=== PATIENT | male | born 1955 | race Caucasian/White ===

== ENCOUNTER → 2016-07-29 | Outpatient (CLI) | payer BC ==
[2016-07-29 09:11] LABS: BASOPHILS % 0.8 % (0.0-2.0); EOSINOPHILS % 2.5 % (0.0-5.0); HEMATOCRIT. 48.5 % (42.0-52.0); HEMOGLOBIN. 16.4 g/dL (14.0-18.0); LYMPHOCYTES % 25.5 % (20.0-50.0); MEAN CORPUSCULAR HEMOGLOBIN 30.2 pg (28.0-32.0); MEAN CORPUSCULAR HGB CONC 33.9 g/dL (31.0-37.0); MEAN CORPUSCULAR VOLUME 89.3 fL (80.0-94.0); MEAN PLATELET VOLUME 8.3 fl (7.4-10.4); MONOCYTES % 6.7 % (2.0-8.0); NEUTROPHILS % 64.5 % (40.0-76.0); PLATELET 168 x1000/uL (130-400); RED BLOOD CELL COUNT 5.43 mill/uL (4.7-6.1); RED CELL DISTRIBUTION WIDTH 12.7 % (11.6-14.6); WHITE BLOOD COUNT 6.4 x1000/uL (4.5-11.0)
[2016-07-29 09:30] LABS: ALANINE AMINOTRANSFERASE 65 IU/L (13-61); ALBUMIN 4.5 g/dL (3.4-5.0); ANION GAP 11; CALCIUM 9.3 mg/dL (8.5-10.1); CARBON DIOXIDE 28 mEq/L (21-32); CHLORIDE 103 mEq/L (98-107); HDL CHOLESTEROL 62 mg/dL (40-59); INDEX HEMOLYSI 1 (1-3); INDEX ICTERIC 1 (1-4); INDEX LIPEMIC 1 (1-3); LDL CHOLESTEROL 115 mg/dL (5-100); T4 FREE 0.96 ng/dL (0.76-1.46); TRIGLYCERIDE 177 mg/dL (0-150); UREA NITROGEN BLOOD 14 mg/dL (7-21); eGFR > 60 mL/min (>60)
[2016-07-30 09:06] LABS: FOLICLE STIMULATING HORMONE 4.3 mIU/mL (1.5-12.4); LUTEINIZING HORMONE 6.6 mIU/mL (1.7-8.6)
[2016-07-31 17:06] LABS: TESTOSTERONE FREE 9.6 pg/mL (7.2-24.0)
[2016-08-03 14:19] LABS: ALDOSTERONE 4.2 ng/dL (0.0-30.0)
[2016-08-05 15:08] LABS: RENIN ACTIVITY PLASMA 1.109 ng/mL/hr (0.167-5.380)
== END | disposition home or self-care (01) ==
LOC: LAB 08:32
PROVIDERS: ATTEND Internal Medicine Endocrinology, Diabetes & Metabolism
DX: E78.00 Pure hypercholesterolemia, unspecified (principal); E23.0 Hypopituitarism; E87.6 Hypokalemia
CPT/HCPCS: 36415; 80053; 80061; 82024; 82088; 82533; 83001; 83002; 83036; 84244; 84402; 84403; 84439; 84443; 85025

== ENCOUNTER → 2016-08-08 | Outpatient (CLI) | payer BC ==
[~2016-08-08] MED LIST: GADOBENATE DIMEGLUMINE 529 MG/ML 10ML IV ONE
== END | disposition home or self-care (01) ==
LOC: MRI 07:56
PROVIDERS: ATTEND Internal Medicine Endocrinology, Diabetes & Metabolism
DX: E23.0 Hypopituitarism (principal)
CPT/HCPCS: 70553; A9577

== ENCOUNTER → 2016-09-12 | Outpatient (CLI) | payer BC ==
[2016-09-12 08:37] LABS: BASOPHILS % 0.9 % (0.0-2.0); EOSINOPHILS % 3.1 % (0.0-5.0); HEMATOCRIT. 45.8 % (42.0-52.0); HEMOGLOBIN. 15.7 g/dL (14.0-18.0); LYMPHOCYTES % 22.5 % (20.0-50.0); MEAN CORPUSCULAR HEMOGLOBIN 30.6 pg (28.0-32.0); MEAN CORPUSCULAR VOLUME 89.1 fL (80.0-94.0); MEAN PLATELET VOLUME 7.9 fl (7.4-10.4); MONOCYTES % 6.4 % (2.0-8.0); NEUTROPHILS % 67.1 % (40.0-76.0); PLATELET 185 x1000/uL (130-400); RED BLOOD CELL COUNT 5.14 mill/uL (4.7-6.1); RED CELL DISTRIBUTION WIDTH 13.1 % (11.6-14.6)
[2016-09-12 09:02] LABS: CARBON DIOXIDE 28 mEq/L (21-32); CHLORIDE 104 mEq/L (98-107); HDL CHOLESTEROL 76 mg/dL (40-59); LDL CHOLESTEROL 95 mg/dL (5-100); T4 FREE 0.93 ng/dL (0.76-1.46)
== END | disposition home or self-care (01) ==
LOC: LAB 08:12
PROVIDERS: ATTEND Internal Medicine Endocrinology, Diabetes & Metabolism
DX: D35.2 Benign neoplasm of pituitary gland (principal); I10 Essential (primary) hypertension; R73.9 Hyperglycemia, unspecified; E55.9 Vitamin D deficiency, unspecified
CPT/HCPCS: 36415; 80053; 80061; 82306; 82533; 83036; 84439; 84443; 85025

== ENCOUNTER → 2016-11-11 | Outpatient (CLI) | payer BC ==
[2016-11-11 08:16] LABS: BASOPHILS % 1.3 % (0.0-2.0); EOSINOPHILS % 5.2 % (0.0-5.0); HEMATOCRIT. 42.5 % (42.0-52.0); HEMOGLOBIN. 14.5 g/dL (14.0-18.0); MEAN CORPUSCULAR HEMOGLOBIN 30.4 pg (28.0-32.0); MEAN PLATELET VOLUME 8.1 fl (7.4-10.4); MONOCYTES % 6.9 % (2.0-8.0); NEUTROPHILS % 56.6 % (40.0-76.0); PLATELET 183 x1000/uL (130-400); RED BLOOD CELL COUNT 4.78 mill/uL (4.7-6.1); RED CELL DISTRIBUTION WIDTH 13.1 % (11.6-14.6)
[2016-11-11 08:53] LABS: CARBON DIOXIDE 26 mEq/L (21-32); CHLORIDE 104 mEq/L (98-107); HDL CHOLESTEROL 58 mg/dL (40-59); LDL CHOLESTEROL 98 mg/dL (5-100)
== END | disposition home or self-care (01) ==
LOC: LAB 07:41
PROVIDERS: ATTEND Internal Medicine Endocrinology, Diabetes & Metabolism
DX: I10 Essential (primary) hypertension (principal); E78.5 Hyperlipidemia, unspecified; E55.9 Vitamin D deficiency, unspecified; R73.9 Hyperglycemia, unspecified
CPT/HCPCS: 36415; 80053; 80061; 82306; 83835; 84439; 84443; 85025

== ENCOUNTER → 2017-02-14 | Outpatient (CLI) | payer BC ==
[2017-02-14 07:54] LABS: BASOPHILS % 1.2 % (0.0-2.0); EOSINOPHILS % 3.7 % (0.0-5.0); HEMATOCRIT. 42.7 % (42.0-52.0); HEMOGLOBIN. 14.7 g/dL (14.0-18.0); LYMPHOCYTES % 22.7 % (20.0-50.0); MEAN CORPUSCULAR HEMOGLOBIN 30.4 pg (28.0-32.0); MEAN CORPUSCULAR VOLUME 88.5 fL (80.0-94.0); MEAN PLATELET VOLUME 8.2 fl (7.4-10.4); MONOCYTES % 6.9 % (2.0-8.0); NEUTROPHILS % 65.5 % (40.0-76.0); PLATELET 175 x1000/uL (130-400); RED BLOOD CELL COUNT 4.83 mill/uL (4.7-6.1)
[2017-02-14 08:21] LABS: CHLORIDE 104 mEq/L (98-107)
[2017-02-14 08:52] LABS: CARBON DIOXIDE 24 mEq/L (21-32); HDL CHOLESTEROL 48 mg/dL (40-59); LDL CHOLESTEROL 98 mg/dL (5-100); PHOSPHORUS 3.5 mg/dL (2.5-4.9); T4 FREE 0.88 ng/dL (0.76-1.46)
[2017-02-15 09:07] LABS: HAV IGM ANTIBODY Negative (Negative); HBSAG SCREEN Negative (Negative); HEPATITIS B CORE IGM AB Negative (Negative); HEPATITIS C AB <0.1 s/co ratio (0.0-0.9); THYROID PEROXIDASE ANTIBODY 10 IU/mL (0-34)
[2017-02-15 13:11] LABS: ANTI-NUCLEAR ANTIBODIES DIRECT Negative (Negative)
[2017-02-17 13:12] LABS: HUMAN GROWTH HORMONE < 0.1 ng/mL (0.0-10.0)
== END | disposition home or self-care (01) ==
LOC: LAB 07:10
PROVIDERS: ATTEND Internal Medicine Endocrinology, Diabetes & Metabolism
DX: I10 Essential (primary) hypertension (principal); E55.9 Vitamin D deficiency, unspecified; D35.2 Benign neoplasm of pituitary gland; R79.89 Other specified abnormal findings of blood chemistry
CPT/HCPCS: 36415; 80053; 80061; 80074; 82024; 82088; 82306; 82390; 82525; 82533; 83003; 83036; 83735; 84100; 84439; 84443; 85025; 85651; 86038; 86376; 86430

== ENCOUNTER → 2017-02-21 | Outpatient (CLI) | payer BC | END | disposition home or self-care (01) | LOC: US 10:07 | PROVIDERS: ATTEND Internal Medicine Endocrinology, Diabetes & Metabolism | DX: K76.0 Fatty (change of) liver, not elsewhere classified (principal); M48.02 Spinal stenosis, cervical region; M47.892 Other spondylosis, cervical region; R60.0 Localized edema; Z98.1 Arthrodesis status | CPT/HCPCS: 72141; 76700; 93923 ==

== ENCOUNTER → 2017-06-05 | Outpatient (CLI) | payer BC ==
[2017-06-05 09:07] LABS: BASOPHILS % 0.8 % (0.0-2.0); EOSINOPHILS % 4.2 % (0.0-5.0); HEMATOCRIT. 41.1 % (42.0-52.0); HEMOGLOBIN. 14.1 g/dL (14.0-18.0); LYMPHOCYTES % 29.5 % (20.0-50.0); MEAN CORPUSCULAR HEMOGLOBIN 30.3 pg (28.0-32.0); MEAN CORPUSCULAR VOLUME 88.6 fL (80.0-94.0); MEAN PLATELET VOLUME 8.1 fl (7.4-10.4); MONOCYTES % 7.1 % (2.0-8.0); NEUTROPHILS % 58.4 % (40.0-76.0); PLATELET 181 x1000/uL (130-400); RED BLOOD CELL COUNT 4.64 mill/uL (4.7-6.1)
[2017-06-05 09:43] LABS: CHLORIDE 106 mEq/L (98-107)
[2017-06-05 09:51] LABS: HDL CHOLESTEROL 45 mg/dL (40-59); LDL CHOLESTEROL 72 mg/dL (5-100); T4 FREE 0.92 ng/dL (0.76-1.46)
[2017-06-06 13:07] LABS: FOLICLE STIMULATING HORMONE 5.7 mIU/mL (1.5-12.4); LUTEINIZING HORMONE 5.4 mIU/mL (1.7-8.6); PROLACTIN 23.3 ng/mL (4.0-15.2); VITAMIN D 25-OH 14.4 ng/mL (30.0-100.0)
== END | disposition home or self-care (01) ==
LOC: LAB 08:35
PROVIDERS: ATTEND Internal Medicine Endocrinology, Diabetes & Metabolism
DX: I10 Essential (primary) hypertension (principal); E78.4 Other hyperlipidemia; R73.9 Hyperglycemia, unspecified; D35.2 Benign neoplasm of pituitary gland
CPT/HCPCS: 36415; 80053; 80061; 82306; 82533; 83001; 83002; 84146; 84439; 84443; 85025

== ENCOUNTER → 2017-10-17 | Outpatient (CLI) | payer BC ==
[2017-10-17 16:02] LABS: BASOPHILS % 0.8 % (0.0-2.0); EOSINOPHILS % 4.3 % (0.0-5.0); HEMATOCRIT. 42.9 % (42.0-52.0); HEMOGLOBIN. 14.9 g/dL (14.0-18.0); LYMPHOCYTES % 22.6 % (20.0-50.0); MEAN CORPUSCULAR HEMOGLOBIN 31.1 pg (28.0-32.0); MEAN CORPUSCULAR VOLUME 89.6 fL (80.0-94.0); MEAN PLATELET VOLUME 8.1 fl (7.4-10.4); MONOCYTES % 6.9 % (2.0-8.0); NEUTROPHILS % 65.4 % (40.0-76.0); PLATELET 167 x1000/uL (130-400); RED BLOOD CELL COUNT 4.79 mill/uL (4.7-6.1); RED CELL DISTRIBUTION WIDTH 12.8 % (11.6-14.6)
[2017-10-17 16:12] LABS: CHLORIDE 104 mEq/L (98-107)
[2017-10-17 16:21] LABS: LDL CHOLESTEROL 74 mg/dL (5-100)
[2017-10-17 16:22] LABS: HDL CHOLESTEROL 48 mg/dL (40-59); T4 FREE 1.07 ng/dL (0.76-1.46)
[2017-10-17 16:27] LABS: CORTISOL 2.1 ucg/dL; PROSTRATE SPECIFIC AG TOTAL 0.32 ng/mL (0.0-4.0)
[2017-10-19 09:11] LABS: PROLACTIN 24.5 ng/mL (4.0-15.2); VITAMIN D 25-OH 12.6 ng/mL (30.0-100.0)
== END | disposition home or self-care (01) ==
LOC: LAB 15:25
PROVIDERS: ATTEND Internal Medicine Endocrinology, Diabetes & Metabolism
DX: E55.9 Vitamin D deficiency, unspecified (principal); R73.9 Hyperglycemia, unspecified; D35.2 Benign neoplasm of pituitary gland; I10 Essential (primary) hypertension; E78.00 Pure hypercholesterolemia, unspecified; E78.5 Hyperlipidemia, unspecified
CPT/HCPCS: 36415; 80053; 80061; 82024; 82306; 82533; 83036; 84146; 84153; 84305; 84439; 84443; 85025

== ENCOUNTER → 2017-10-20 | Outpatient (CLI) | payer BC | END | disposition home or self-care (01) | LOC: MRI 08:32 | PROVIDERS: ATTEND Internal Medicine Endocrinology, Diabetes & Metabolism | DX: D35.2 Benign neoplasm of pituitary gland (principal); I10 Essential (primary) hypertension; E78.00 Pure hypercholesterolemia, unspecified | CPT/HCPCS: 70553; A9577 ==

== ENCOUNTER → 2018-03-09 | Outpatient (CLI) | payer BC ==
[2018-03-09 09:03] LABS: BASOPHILS % 0.8 % (0.0-2.0); EOSINOPHILS % 3.4 % (0.0-5.0); HEMATOCRIT. 42.6 % (42.0-52.0); HEMOGLOBIN. 14.6 g/dL (14.0-18.0); LYMPHOCYTES % 26.4 % (20.0-50.0); MEAN CORPUSCULAR HEMOGLOBIN 31.8 pg (28.0-32.0); MEAN CORPUSCULAR VOLUME 92.9 fL (80.0-94.0); MEAN PLATELET VOLUME 7.5 fl (7.4-10.4); MONOCYTES % 5.5 % (2.0-8.0); NEUTROPHILS % 63.9 % (40.0-76.0); PLATELET 226 x1000/uL (130-400); RED BLOOD CELL COUNT 4.59 mill/uL (4.7-6.1); RED CELL DISTRIBUTION WIDTH 13.3 % (11.6-14.6)
[2018-03-09 09:22] LABS: CHLORIDE 105 mEq/L (98-107)
[2018-03-09 09:30] LABS: LDL CHOLESTEROL 83 mg/dL (5-100)
[2018-03-09 09:31] LABS: HDL CHOLESTEROL 55 mg/dL (40-59)
[2018-03-09 09:32] LABS: T4 FREE 0.76 ng/dL (0.76-1.46)
[2018-03-10 09:06] LABS: FOLICLE STIMULATING HORMONE 5.1 mIU/mL (1.5-12.4)
[2018-03-11 09:09] LABS: TESTOSTERONE FREE 6.3 pg/mL (6.6-18.1)
[2018-03-11 19:09] LABS: INSULIN-LIKE GROWTH FACTOR 1 126 ng/mL (54-194)
== END | disposition home or self-care (01) ==
LOC: LAB 08:13
PROVIDERS: ATTEND Internal Medicine Endocrinology, Diabetes & Metabolism
DX: M19.041 Primary osteoarthritis, right hand (principal); E78.5 Hyperlipidemia, unspecified; E55.9 Vitamin D deficiency, unspecified; R73.9 Hyperglycemia, unspecified; D49.7 Neoplasm of unspecified behavior of endocrine glands and other parts of nervous system; M79.89 Other specified soft tissue disorders
CPT/HCPCS: 36415; 73130; 80061; 82024; 82306; 82533; 83001; 83002; 83036; 84305; 84402; 84403; 84439; 84443

== ENCOUNTER → 2018-06-25 | Outpatient (CLI) | payer BC ==
[2018-06-25 10:49] LABS: C REACTIVE PROTEIN CARDIAC 0.41 mg/L (0.00-3.00)
== END | disposition home or self-care (01) ==
LOC: LAB 09:50
PROVIDERS: ATTEND Internal Medicine Endocrinology, Diabetes & Metabolism
DX: M19.90 Unspecified osteoarthritis, unspecified site (principal)
CPT/HCPCS: 36415; 84550; 85651; 86141

== ENCOUNTER → 2018-09-12 | Outpatient (CLI) | payer BC ==
[2018-09-12 17:55] LABS: BASOPHILS % 0.8 % (0.0-2.0); EOSINOPHILS % 2.9 % (0.0-5.0); HEMATOCRIT. 45.7 % (42.0-52.0); HEMOGLOBIN. 15.7 g/dL (14.0-18.0); LYMPHOCYTES % 31.2 % (20.0-50.0); MEAN CORPUSCULAR HEMOGLOBIN 31.8 pg (28.0-32.0); MEAN CORPUSCULAR VOLUME 92.4 fL (80.0-94.0); MEAN PLATELET VOLUME 7.6 fl (7.4-10.4); MONOCYTES % 6.3 % (2.0-8.0); NEUTROPHILS % 58.8 % (40.0-76.0); PLATELET 173 x1000/uL (130-400); RED BLOOD CELL COUNT 4.95 mill/uL (4.7-6.1); RED CELL DISTRIBUTION WIDTH 13.2 % (11.6-14.6)
[2018-09-12 17:57] LABS: CHLORIDE 109 mEq/L (98-107)
[2018-09-12 18:06] LABS: LDL CHOLESTEROL 115 mg/dL (5-100)
[2018-09-12 18:08] LABS: HDL CHOLESTEROL 61 mg/dL (40-59); T4 FREE 0.76 ng/dL (0.76-1.46)
[2018-09-15 09:07] LABS: PROLACTIN 7.8 ng/mL (4.0-15.2); VITAMIN D 25-OH 24.5 ng/mL (30.0-100.0)
== END | disposition home or self-care (01) ==
LOC: LAB 16:28
PROVIDERS: ATTEND Internal Medicine Endocrinology, Diabetes & Metabolism
DX: M20.11 Hallux valgus (acquired), right foot (principal); M21.961 Unspecified acquired deformity of right lower leg; E78.5 Hyperlipidemia, unspecified; D35.2 Benign neoplasm of pituitary gland; E05.90 Thyrotoxicosis, unspecified without thyrotoxic crisis or storm; M19.90 Unspecified osteoarthritis, unspecified site
CPT/HCPCS: 36415; 73620; 80061; 82024; 82306; 82533; 83036; 84146; 84305; 84439; 84443; 84550; 85651

== ENCOUNTER → 2018-11-27 | Outpatient (CLI) | payer BC ==
[2018-11-27 08:11] LABS: EOSINOPHILS % 6.4 % (0.0-5.0); HEMATOCRIT. 46.1 % (42.0-52.0); HEMOGLOBIN. 15.5 g/dL (14.0-18.0); LYMPHOCYTES % 31.1 % (20.0-50.0); MEAN CORPUSCULAR HEMOGLOBIN 30.9 pg (28.0-32.0); MEAN CORPUSCULAR VOLUME 91.8 fL (80.0-94.0); MEAN PLATELET VOLUME 8.3 fl (7.4-10.4); NEUTROPHILS % 52.5 % (40.0-76.0); PLATELET 161 x1000/uL (130-400); RED BLOOD CELL COUNT 5.02 mill/uL (4.7-6.1); RED CELL DISTRIBUTION WIDTH 13.3 % (11.6-14.6)
[2018-11-27 10:22] LABS: VITAMIN B12 SERUM 828 pg/mL (211-911)
[2018-11-27 10:24] LABS: CHLORIDE 104 mEq/L (98-107)
[2018-11-27 10:34] LABS: LDL CHOLESTEROL 97 mg/dL (5-100)
[2018-11-27 10:35] LABS: HDL CHOLESTEROL 66 mg/dL (40-59); T4 FREE 0.91 ng/dL (0.76-1.46)
[2018-11-27 10:39] LABS: FOLIC ACID (FOLATE) SERUM > 20.00 ng/mL (>5.38)
[2018-11-27 12:07] LABS: CORTISOL 11.6 ucg/dL
[2018-11-27 12:47] LABS: HEPATITIS A AB IGM NEGATIVE (NEGATIVE)
[2018-11-30 07:15] LABS: METHYLMALONIC ACID 130 nmol/L (0-378)
[2018-11-30 16:14] LABS: HEPATITIS B SURFACE ANTIGEN NEGATIVE
== END | disposition home or self-care (01) ==
LOC: LAB 07:33
PROVIDERS: ATTEND Internal Medicine Endocrinology, Diabetes & Metabolism
DX: R73.9 Hyperglycemia, unspecified (principal); R94.5 Abnormal results of liver function studies; M19.90 Unspecified osteoarthritis, unspecified site; D35.2 Benign neoplasm of pituitary gland
CPT/HCPCS: 36415; 80061; 82533; 82607; 82746; 83036; 83921; 84439; 84443; 84550; 85651; 86705; 86709; 86803; 87340